=== PATIENT | female | born 1990 | race Caucasian/White ===

== ENCOUNTER 2020-10-13 09:53 | Observation (INO) | payer OTHER ==
[2020-10-13 10:00] VITALS: BMI 26.6
[2020-10-13] MEDS ORDERED: SODIUM CHLORIDE 1,000 ML IV STA ×2 (10:32→12:02)
[2020-10-13] MEDS ORDERED: ONDANSETRON 4 MG/2 ML VIAL IVPUSH ONE (10:32)
[2020-10-13] MEDS ORDERED: ACETAMINOPHEN 1000 MG/100 ML VIAL (NON FORMULARY) IVPB ONE (10:32)
[2020-10-13 10:44] LABS: HCG,QUALITATIVE URINE Negative
[2020-10-13] MEDS ORDERED: ACETAMINOPHEN INJECTION 100 ML IVPB ONE (10:44)
[2020-10-13 10:45] LABS: EPI CELLS >36 /uL (0-25.1); HYALINE CASTS 13 /uL (0-3.1); PH,URINE 5.5 (5.0-8.0); URINE APPEARANCE CLOUDY; URINE BACTERIA 5898 /uL (0-1359); URINE BILIRUBIN NEGATIVE (NEGATIVE); URINE COLOR YELLOW; URINE GLUCOSE (UA) NEGATIVE (NEGATIVE); URINE KETONE NEGATIVE (NEGATIVE); URINE LEUK ESTERASE 3+ (NEGATIVE); URINE NITRITE POSITIVE (NEGATIVE); URINE PROTEIN NEGATIVE (NEGATIVE); URINE RBC 2 /uL (0-23.9); URINE UROBILINOGEN 0.2 mg/dL (0.2-1.0); URINE WBC 27 /uL (0-25.8)
[2020-10-13] MEDS ORDERED: ONDANSETRON 4 MG/2 ML VIAL ONE (10:45)
[2020-10-13 10:52] LABS: BASO % 0.6 % (0-2.0); EOS % 0.2 % (0-4.5); HEMATOCRIT 35.7 % (32.4-45.2); HEMOGLOBIN 12.4 GM/dL (10.7-15.3); LYMPH % 17.6 % (8-40); MCH 28.4 pg (25.7-33.7); MCHC 34.9 g/dl (32.0-36.0); MEAN CELL VOLUME 81.4 fl (80-96); MEAN PLT VOLUME 8.5 fl (7.5-11.1); MONO % 7.8 % (3.8-10.2); NEUT % 73.8 % (42.8-82.8); PLATELET COUNT 277 K/MM3 (134-434); RBC 4.38 M/mm3 (3.60-5.2); RDW 15.2 % (11.6-15.6); WHITE BLOOD COUNT 14.7 K/mm3 (4.0-10.0)
[2020-10-13 11:17] LABS: CALCIUM 9.7 mg/dL (8.5-10.1)
[2020-10-13 11:18] LABS: ALBUMIN 4.2 g/dl (3.4-5.0); BLOOD UREA NITROGEN 8.7 mg/dL (7-18)
[2020-10-13 11:20] LABS: CREATININE 0.6 mg/dL (0.55-1.3)
[2020-10-13 11:22] LABS: BILIRUBIN,TOTAL 0.7 mg/dL (0.2-1)
[2020-10-13] MEDS ORDERED: KETOROLAC TROMETHAMINE 60 MG/2 ML VIAL IVPUSH ONE (12:02)
[2020-10-13] MEDS ORDERED: KETOROLAC TROMETHAMINE 15 MG/ML VIAL ONE ×2 (12:08→12:15)
[2020-10-13] MEDS ORDERED: CEFTRIAXONE 1,000 MG in DEXTROSE 5%-WATER - 50 ML IVPB ONE (13:35)
[2020-10-13] MEDS ORDERED: morphine CARPU-JECT 4 MG/1 ML DISP.SYRIN IVPUSH ONE (13:36)
[2020-10-13] MEDS ORDERED: CEFTRIAXONE 1 GM/50 ML BAG ONE (13:40)
[2020-10-13] MEDS ORDERED: morphine SULFATE 4 MG/ML VIAL ONE (13:41)
[2020-10-13] MEDS: KETOROLAC TROMETHAMINE 15 MG/ML VIAL IVPUSH PRN (16:35)
[2020-10-13] MEDS: ACETAMINOPHEN 325 MG TABLET (FP) PO PRN (20:56)
[2020-10-14] MEDS: KETOROLAC TROMETHAMINE 15 MG/ML VIAL IVPUSH PRN ×2 (01:18→08:33)
[2020-10-14 05:28] VITALS: BP 102/55; PULSE 58; TEMP 98.1
[2020-10-14] MEDS: ACETAMINOPHEN 325 MG TABLET (FP) PO PRN (06:44)
[2020-10-14 07:20] LABS: BASO % 0.5 % (0-2.0); EOS % 0.7 % (0-4.5); LYMPH % 34.7 % (8-40); MCH 29.1 pg (25.7-33.7); MCHC 35.6 g/dl (32.0-36.0); MEAN CELL VOLUME 81.9 fl (80-96); MEAN PLT VOLUME 8.6 fl (7.5-11.1); MONO % 8.1 % (3.8-10.2); PLATELET COUNT 253 K/MM3 (134-434); RBC 3.78 M/mm3 (3.60-5.2); RDW 15.3 % (11.6-15.6); WHITE BLOOD COUNT 8.1 K/mm3 (4.0-10.0)
[2020-10-14 08:10] LABS: BLOOD UREA NITROGEN 10.3 mg/dL (7-18); CALCIUM 8.6 mg/dL (8.5-10.1); MAGNESIUM 2.1 mg/dL (1.8-2.4)
[2020-10-14 08:14] LABS: CREATININE 0.5 mg/dL (0.55-1.3)
[2020-10-14 08:16] LABS: BILIRUBIN,TOTAL 0.9 mg/dL (0.2-1); TOT PROT 6.4 g/dl (6.4-8.2)
[2020-10-14 08:22] LABS: ALBUMIN 3.3 g/dl (3.4-5.0)
[2020-10-14] MEDS ORDERED: PT OWN MED DRAWER 7, Y5N ONE (09:22)
[2020-10-14] MEDS ORDERED: PRENATAL VITAMINS W/ FOLIC ACID TABLET (FP) PO SCH (10:00)
[2020-10-14] MEDS ORDERED: CEFTRIAXONE 1 GM in DEXTROSE 5%-WATER - 50 ML IVPB ONE (10:30)
[2020-10-14] MEDS ORDERED: DEXTROSE 5%-WATER - 50 ML IVPB ONE (10:51)
[2020-10-14] MEDS ORDERED: cefTRIAXone SODIUM 1 GM VIAL ONE (10:51)
== END 2020-10-14 14:16 | disposition home or self-care (01) ==
LOC: JER 09:53 → JERBED 13:51 → J7W 16:28
PROVIDERS: ADMIT Internal Medicine; ATTEND Nurse Practitioner Acute Care
PROC: 3E03329 Introduction of Other Anti-infective into Peripheral Vein, Percutaneous Approach (ICD-10-PCS; principal; 2020-10-13)
PROC: 3E033NZ Introduction of Analgesics, Hypnotics, Sedatives into Peripheral Vein, Percutaneous Approach (ICD-10-PCS; 2020-10-13)
PROC: 3E033NZ Introduction of Analgesics, Hypnotics, Sedatives into Peripheral Vein, Percutaneous Approach (ICD-10-PCS; 2020-10-13)
PROC: 3E0337Z Introduction of Electrolytic and Water Balance Substance into Peripheral Vein, Percutaneous Approach (ICD-10-PCS; 2020-10-13)
DX: N12 Tubulo-interstitial nephritis, not specified as acute or chronic (principal); F98.8 Other specified behavioral and emotional disorders with onset usually occurring in childhood and adolescence; R30.0 Dysuria; R10.31 Right lower quadrant pain; Z29.9 Encounter for prophylactic measures, unspecified; Z20.822 Contact with and (suspected) exposure to COVID-19; Z88.0 Allergy status to penicillin
CPT/HCPCS: 36415; 74176-TC; 80053; 81003; 83735; 84703; 85025; 87086; 87186; 87491; 87591; 96361; 96365; 96366; 96375; 99285-25; C9803; G0378; J0131; U0003; U0005

== ENCOUNTER 2020-11-07 21:52 | Emergency (ER) | payer OTHER ==
[2020-11-07 22:06] VITALS: BP 111/69; PULSE 77; TEMP 97.9; BMI 28.1
[2020-11-07 23:12] LABS: EPI CELLS 6 /uL (0-25.1); HYALINE CASTS 1 /uL (0-3.1); URINE APPEARANCE CLEAR; URINE BACTERIA 339 /uL (0-1359); URINE BILIRUBIN NEGATIVE (NEGATIVE); URINE COLOR YELLOW; URINE GLUCOSE (UA) NEGATIVE (NEGATIVE); URINE KETONE NEGATIVE (NEGATIVE); URINE LEUK ESTERASE 2+ (NEGATIVE); URINE NITRITE NEGATIVE (NEGATIVE); URINE PROTEIN NEGATIVE (NEGATIVE); URINE RBC 8 /uL (0-23.9); URINE UROBILINOGEN 0.2 mg/dL (0.2-1.0); URINE WBC 291 /uL (0-25.8)
[2020-11-08] MEDS ORDERED: ACETAMINOPHEN 500 MG TABLET (FP) PO ONE (00:14)
[2020-11-08] MEDS ORDERED: LIDOCAINE 5% TOPICAL PATCH TP ONE (00:14)
[2020-11-08] MEDS ORDERED: SODIUM CHLORIDE 0.9% 500 ML INFUS.BAG IV ONE (00:27)
[2020-11-08] MEDS ORDERED: ACETAMINOPHEN 1000 MG/100 ML VIAL (NON FORMULARY) IVPB ONE (00:28)
[2020-11-08] MEDS ORDERED: LIDOCAINE PATCH REMOVAL MC SCH (22:00)
== END 2020-11-08 01:30 | disposition left against medical advice (07) ==
LOC: JER 21:52
DX: R10.31 Right lower quadrant pain (principal); N10 Acute pyelonephritis
CPT/HCPCS: 74177-TC; 81003; 87086; 87186; 99285-25; Q9967

== ENCOUNTER 2021-08-04 13:35 | Emergency (ER) | payer OTHER ==
[2021-08-04 13:40] VITALS: BP 146/89; PULSE 82; TEMP 97; BMI 25.8
[2021-08-04] MEDS ORDERED: METHOCARBAMOL 500 MG TABLET PO ONE (13:58)
[2021-08-04] MEDS ORDERED: KETOROLAC TROMETHAMINE 60 MG/2 ML VIAL IM ONE (13:58)
[2021-08-04] MEDS ORDERED: LIDOCAINE 5% TOPICAL PATCH TP ONE (13:58)
[2021-08-04] MEDS ORDERED: LIDOCAINE 5% TOPICAL PATCH ONE (14:06)
[2021-08-04] MEDS ORDERED: METHOCARBAMOL 500 MG TABLET ONE (14:06)
[2021-08-04] MEDS ORDERED: KETOROLAC TROMETHAMINE 30 MG/1 ML VIAL ONE (14:07)
[2021-08-04 15:03] LABS: HCG,QUALITATIVE URINE Negative
[2021-08-04 15:05] LABS: EPI CELLS >36 /uL (0-25.1); HYALINE CASTS 1 /uL (0-3.1); URINE APPEARANCE CLEAR; URINE BACTERIA 395 /uL (0-1359); URINE BILIRUBIN NEGATIVE (NEGATIVE); URINE COLOR YELLOW; URINE GLUCOSE (UA) NEGATIVE (NEGATIVE); URINE KETONE NEGATIVE (NEGATIVE); URINE LEUK ESTERASE 1+ (NEGATIVE); URINE NITRITE NEGATIVE (NEGATIVE); URINE PROTEIN NEGATIVE (NEGATIVE); URINE RBC 4 /uL (0-23.9); URINE UROBILINOGEN 0.2 mg/dL (0.2-1.0); URINE WBC 79 /uL (0-25.8)
[2021-08-04] MEDS ORDERED: LIDOCAINE PATCH REMOVAL MC SCH (22:00)
== END 2021-08-04 15:40 | disposition home or self-care (01) ==
LOC: JER 13:35 → JERFT 13:35
PROC: 3E023GC Introduction of Other Therapeutic Substance into Muscle, Percutaneous Approach (ICD-10-PCS; principal; 2021-08-04)
DX: N30.00 Acute cystitis without hematuria (principal); M54.50 Low back pain, unspecified
CPT/HCPCS: 81003; 84703; 87086; 99284-25

== ENCOUNTER 2022-04-24 15:41 | Emergency (ER) | payer OTHER ==
[2022-04-24 16:05] VITALS: BP 125/88; PULSE 78; RESP 18; TEMP 97.9; BMI 25.0
[2022-04-24 16:47] LABS: EPI CELLS 9 /uL (0-25.1); HYALINE CASTS 2 /uL (0-3.1); PH,URINE 5.5 (5.0-8.0); URINE APPEARANCE CLEAR; URINE BACTERIA 26 /uL (0-1359); URINE BILIRUBIN NEGATIVE (NEGATIVE); URINE COLOR YELLOW; URINE GLUCOSE (UA) NEGATIVE (NEGATIVE); URINE KETONE TRACE (NEGATIVE); URINE LEUK ESTERASE NEGATIVE (NEGATIVE); URINE NITRITE NEGATIVE (NEGATIVE); URINE PROTEIN TRACE (NEGATIVE); URINE RBC 771 /uL (0-23.9); URINE UROBILINOGEN 0.2 mg/dL (0.2-1.0); URINE WBC 7 /uL (0-25.8)
[2022-04-24 16:57] LABS: HCG,QUALITATIVE URINE Negative
[2022-04-24] MEDS ORDERED: KETOROLAC TROMETHAMINE 30 MG/1 ML VIAL IM ONE (17:53)
[2022-04-24] MEDS ORDERED: KETOROLAC TROMETHAMINE 30 MG/1 ML VIAL ONE (18:00)
[2022-04-24 20:06] LABS: BASO % 0.9 % (0-2.0); HEMATOCRIT 37.6 % (32.4-45.2); HEMOGLOBIN 12.8 GM/dL (10.7-15.3); LYMPH % 38.1 % (8-40); MCH 27.4 pg (25.7-33.7); MCHC 33.9 g/dl (32.0-36.0); MEAN CELL VOLUME 80.7 fl (80-96); MEAN PLT VOLUME 8.3 fl (7.5-11.1); MONO % 6.4 % (3.8-10.2); NEUT % 52.6 % (42.8-82.8); PLATELET COUNT 341 10^3/uL (134-434); RBC 4.66 M/mm3 (3.60-5.2); RDW 16.3 % (11.6-15.6)
[2022-04-24 20:26] LABS: BLOOD UREA NITROGEN 9.7 mg/dL (7-18); CALCIUM 9.8 mg/dL (8.5-10.1)
[2022-04-24 20:29] LABS: CREATININE 0.7 mg/dL (0.55-1.3)
[2022-04-24 20:31] LABS: BILIRUBIN,TOTAL 0.6 mg/dL (0.2-1); TOT PROT 7.9 g/dl (6.4-8.2)
== END 2022-04-24 22:08 | disposition home or self-care (01) ==
LOC: JER 15:41
PROC: 3E023GC Introduction of Other Therapeutic Substance into Muscle, Percutaneous Approach (ICD-10-PCS; principal; 2022-04-24)
DX: R10.31 Right lower quadrant pain (principal)
CPT/HCPCS: 36415; 74177-TC; 80053; 81003; 83690; 84703; 85025; 87086; 99285-25; Q9967